=== PATIENT | male | born 1985 ===

== ENCOUNTER 2018-05-22 15:51 | Emergency (ER) | payer SELFPAY ==
[~2018-05-22] VITALS: Ht 170.2 cm; Wt 79.0 kg
[2018-05-22 16:02] VITALS: BP 155/96; PULSE 95; RESP 18; Ht 170.2 cm; Wt 79.0 kg
== END 2018-05-22 18:47 | disposition left against medical advice (07) ==
LOC: E/R 15:51
DX: Z53.21 Procedure and treatment not carried out due to patient leaving prior to being seen by health care provider (principal)